=== PATIENT | female | born 1940 | race Two or more races ===

== ENCOUNTER 2025-01-18 06:00 | Day surgery (SDC) | payer OTHER ==
[2025-01-11 08:42] VITALS: BP 141/69
[2025-01-11 09:06] LABS: BASO % 1.0 % (0.1-1.2); EOS # 0.09 (0.04-0.54); EOS % 1.3 % (0.7-7.0); LYMPH # 1.69 (1.18-3.74); LYMPH % 23.5 % (19.3-53.1); MEAN PLATELET VOLUME 11.30 fl (9.4-12.4); MONO # 0.41 (0.24-0.82); MONO % 5.7 % (4.7-12.5); NEUT # 4.92 (1.56-6.13); NEUT % 68.2 % (34.0-71.1); RED CELL DISTRIBUTION WIDTH 12.9 % (11.6-14.4)
[2025-01-11 09:34] LABS: INR 0.97
[2025-01-11 09:57] LABS: ALT/SGPT 17.0 U/L (12-78); AST/SGOT 17.0 U/L (15-37); BILIRUBIN TOTAL 0.79 mg/dL (0.3-1.2); BUN CREA RATIO 24.0 (7.0-25.0); CREATININE SERUM 0.92 mg/dL (0.55-1.02); GFR 58.02; GLOBULINA 4.0 G/DL (2.4-3.5); GLUCOSE FASTING 108.0 mg/dL (65-100); OSMOLALITY SERUM 291.0 MOSM/KG (275-295)
[~2025-01-18] VITALS: Ht 152.4 cm; Wt 47.6 kg
[~2025-01-18 06:00] MED LIST: ASA81 MG PO; LOSARTAN-HCTZ1 EACH PO; SYNTHROID50 MCG PO; VITAMIN D31 ML
== END 2025-01-18 13:50 | disposition home or self-care (01) ==
LOC: CIR.AMB 06:00
PROVIDERS: ATTEND Internal Medicine
DX: R10.13 Epigastric pain (principal); R93.3 Abnormal findings on diagnostic imaging of other parts of digestive tract; K22.89 Other specified disease of esophagus; R63.4 Abnormal weight loss; K44.9 Diaphragmatic hernia without obstruction or gangrene